=== PATIENT | female | born 1990 | race Hispanic/Latino ===

== ENCOUNTER 2017-06-20 13:06 | Emergency (ER) | payer SELFPAY ==
[~2017-06-20 13:06] MED LIST: CEFU500T67 PO; LACT1CAP65 PO
[2017-06-20 15:37] LABS: APPEARANCE,URINE CLOUDY (CLEAR); BILIRUBIN,URINE NEGATIVE (NEGATIVE); COLOR,URINE YELLOW (YELLOW); GLUCOSE, URINE (UA) NEGATIVE (NEGATIVE); KETONES,URINE 15 mg/dL (NEGATIVE); LEUKOCYTE ESTERASE ,URINE SMALL (NEGATIVE); NITRATE,URINE POSITIVE (NEGATIVE); OCCULT BLOOD,URINE SMALL (NEGATIVE); PROTEIN,URINE NEGATIVE (NEGATIVE); UROBILINOGEN,URINE 0.2 mg/dL (0.2-1.0)
[2017-06-20 16:41] LABS: BACTERIA,URINE Moderate /HPF (None Seen)
[2017-06-20 16:42] LABS: MUCUS,URINE Few LPF (None Seen); SQUAMOUS EPITHELIAL CELL,UR Few /LPF (0-2)
== END 2017-06-20 16:21 | disposition home or self-care (01) ==
LOC: EDH 13:06
DX: J09.X2 Influenza due to identified novel influenza A virus with other respiratory manifestations (principal); R50.81 Fever presenting with conditions classified elsewhere; N39.0 Urinary tract infection, site not specified
CPT/HCPCS: 81001; 87804

== ENCOUNTER 2017-07-07 10:28 | Emergency (ER) | payer SELFPAY ==
[2017-07-07 11:52] LABS: APPEARANCE,URINE Cloudy (CLEAR); BILIRUBIN,URINE Negative (NEGATIVE); COLOR,URINE Yellow (YELLOW); GLUCOSE, URINE (UA) Negative (NEGATIVE); HCG,QUAL RESULT NEGATIVE (NEGATIVE); KETONES,URINE Trace mg/dL (NEGATIVE); LEUKOCYTE ESTERASE ,URINE Large (NEGATIVE); NITRATE,URINE Positive (NEGATIVE); OCCULT BLOOD,URINE Moderate (NEGATIVE); PROTEIN,URINE Negative (NEGATIVE)
[2017-07-07 11:54] LABS: BACTERIA,URINE Many /HPF (None Seen); RBC,URINE 0-1 /HPF (0-1); SQUAMOUS EPITHELIAL CELL,UR Few /LPF (0-2)
[2017-07-07] MEDS ORDERED: CEFTRIAXONE SODIUM 1 GM ONE (12:40)
[2017-07-07] MEDS ORDERED: LIDOCAINE HCL-MPF 1% 2ML VIAL ONE (12:41)
[2017-07-07] MEDS ORDERED: HYDROCODONE/ACETAMINOPHEN 5/325 MG TAB ONE (12:41)
== END 2017-07-07 13:04 | disposition home or self-care (01) ==
LOC: EDH 10:28
DX: N39.0 Urinary tract infection, site not specified (principal); R19.00 Intra-abdominal and pelvic swelling, mass and lump, unspecified site; Z98.51 Tubal ligation status
CPT/HCPCS: 76856; 81001; 81025; 96372; 99285; J0696; J3490

== ENCOUNTER 2018-06-15 09:47 | Emergency (ER) | payer OTHER ==
[2018-06-15] MEDS ORDERED: ONDANSETRON ODT 4 MG TAB ONE (10:13)
[2018-06-15] MEDS ORDERED: DICYCLOMINE HCL 20 MG TAB ONE (10:13)
[2018-06-15 10:19] LABS: APPEARANCE,URINE Clear (CLEAR); BILIRUBIN,URINE Negative (NEGATIVE); COLOR,URINE Yellow (YELLOW); GLUCOSE, URINE (UA) Negative (NEGATIVE); KETONES,URINE Negative (NEGATIVE); LEUKOCYTE ESTERASE ,URINE Moderate (NEGATIVE); NITRATE,URINE Negative (NEGATIVE); OCCULT BLOOD,URINE Negative (NEGATIVE); PH,URINE 5.5 (5.0-8.0); PROTEIN,URINE Negative (NEGATIVE); UROBILINOGEN,URINE 0.2 mg/dL (0.2-1.0)
[2018-06-15 10:26] LABS: HCG,QUAL RESULT NEGATIVE (NEGATIVE)
[2018-06-15 10:43] LABS: RBC,URINE None Seen /HPF (0-1); SQUAMOUS EPITHELIAL CELL,UR Few /HPF (0-2)
[2018-06-15 10:44] LABS: BACTERIA,URINE Moderate /HPF (None Seen)
== END 2018-06-15 11:39 | disposition home or self-care (01) ==
LOC: EDH 09:47
DX: N39.0 Urinary tract infection, site not specified (principal); R19.7 Diarrhea, unspecified; R11.2 Nausea with vomiting, unspecified
CPT/HCPCS: 81001; 81025

== ENCOUNTER 2018-07-01 08:53 | Emergency (ER) | payer OTHER ==
[2018-07-01 09:43] LABS: APPEARANCE,URINE Cloudy (CLEAR); BILIRUBIN,URINE Negative (NEGATIVE); COLOR,URINE Yellow (YELLOW); GLUCOSE, URINE (UA) Negative (NEGATIVE); KETONES,URINE Negative (NEGATIVE); LEUKOCYTE ESTERASE ,URINE Large (NEGATIVE); NITRATE,URINE Positive (NEGATIVE); OCCULT BLOOD,URINE Trace (NEGATIVE); PROTEIN,URINE Negative (NEGATIVE)
[2018-07-01] MEDS ORDERED: ONDANSETRON HCL 4 MG/2 ML VIAL ONE (09:43)
[2018-07-01 09:44] LABS: HCG,QUAL RESULT NEGATIVE (NEGATIVE)
[2018-07-01] MEDS ORDERED: MORPHINE SULFATE 4 MG/1ML SYG ONE (09:44)
[2018-07-01 09:51] LABS: BASOPHILS % (AUTO) 0.6 % (0.0-5.0); EOSINOPHILS % (AUTO) 4.5 % (0.0-8.0); LYMPHOCYTES % (AUTO) 26.4 % (21.0-51.0); MEAN CORPUSCULAR HEMOGLOBIN 29.7 pg (27.0-33.0); MEAN CORPUSCULAR HGB CONC 33.2 g/dL (32.0-36.0); MEAN CORPUSCULAR VOLUME 89.4 fL (79-99); MONOCYTES % (AUTO) 11.3 % (3.0-13.0); NEUTROPHILS % (AUTO) 57.2 % (40.0-77.0); NUCLEATED RED BLOOD CELLS 0.1 % (0.0-0.19); PLATELET COUNT (AUTO) 218 K/uL (130-400); RED BLOOD CELL COUNT(AUTO) 4.59 MIL/uL (4.00-5.50); RED CELL DISTRIBUTION WIDTH 13.1 % (11.0-15.5); WHITE BLOOD COUNT (AUTO) 6.9 K/uL (4.8-10.8)
[2018-07-01 09:53] LABS: BACTERIA,URINE Moderate /HPF (None Seen)
[2018-07-01 09:54] LABS: RBC,URINE 0-1 /HPF (0-1)
[2018-07-01 09:57] LABS: CREATININE 0.6 mg/dL (0.5-1.5)
[2018-07-01 10:03] LABS: ALBUMIN 3.6 g/dL (3.5-5.0); BILIRUBIN,TOTAL 0.3 mg/dL (0.2-1.0); TOTAL PROTEIN, SERUM 7.2 g/dL (6.0-8.3)
[2018-07-01] MEDS ORDERED: SODIUM CHLORIDE 0.9% 1000ML 1,000 ML IV ONE (10:09)
[2018-07-01] MEDS ORDERED: CEFTRIAXONE SODIUM 1 GM ONE (10:10)
== END 2018-07-01 11:42 | disposition home or self-care (01) ==
LOC: EDH 08:53
DX: N30.90 Cystitis, unspecified without hematuria (principal); R35.0 Frequency of micturition; R10.30 Lower abdominal pain, unspecified; M54.5 Low back pain; Z98.51 Tubal ligation status; Z87.891 Personal history of nicotine dependence
CPT/HCPCS: 36415; 74176; 80053; 81001; 81025; 85025; 87077; 87088; 87186; 96374; 96375; 99284; J0696; J2270; J2405; J7030

== ENCOUNTER 2018-07-20 18:31 | Emergency (ER) | payer OTHER ==
[2018-07-20 19:55] LABS: APPEARANCE,URINE CLOUDY (CLEAR); BILIRUBIN,URINE NEGATIVE (NEGATIVE); COLOR,URINE YELLOW (YELLOW); GLUCOSE, URINE (UA) NEGATIVE (NEGATIVE); KETONES,URINE 5 mg/dL (NEGATIVE); LEUKOCYTE ESTERASE ,URINE MODERATE (NEGATIVE); NITRATE,URINE POSITIVE (NEGATIVE); OCCULT BLOOD,URINE MODERATE (NEGATIVE); PH,URINE 7.5 (5.0-8.0); PROTEIN,URINE TRACE (NEGATIVE)
[2018-07-20 20:02] LABS: HCG,QUAL RESULT NEGATIVE (NEGATIVE)
[2018-07-20 20:04] LABS: BACTERIA,URINE Moderate /HPF (None Seen); SQUAMOUS EPITHELIAL CELL,UR Few /HPF (0-2)
[2018-07-20] MEDS ORDERED: KETOROLAC TROMETHAMINE 60 MG/2 ML VIAL ONE (20:53)
[2018-07-20] MEDS ORDERED: PHENAZOPYRIDINE HCL 200 MG TABLET ONE (20:54)
[2018-07-20] MEDS ORDERED: CEFTRIAXONE SODIUM 1 GM ONE (20:54)
== END 2018-07-20 21:12 | disposition home or self-care (01) ==
LOC: EDH 18:31
DX: N39.0 Urinary tract infection, site not specified (principal); Z98.51 Tubal ligation status
CPT/HCPCS: 81001; 81025; 96372 ×2; 99283; J0696; J1885

== ENCOUNTER 2018-09-07 14:03 | Emergency (ER) | payer OTHER | END 2018-09-07 14:46 | disposition home or self-care (01) | LOC: EDH 14:03 | DX: H66.012 Acute suppurative otitis media with spontaneous rupture of ear drum, left ear (principal); Z98.51 Tubal ligation status ==

== ENCOUNTER 2018-10-12 08:44 | Emergency (ER) | payer OTHER ==
[2018-10-12] MEDS ORDERED: IBUPROFEN 400 MG TABLET ONE (09:07)
[2018-10-12] MEDS ORDERED: IBUPROFEN 200 MG TAB ONE (09:07)
== END 2018-10-12 11:15 | disposition home or self-care (01) ==
LOC: EDH 08:44
DX: R51 Headache (principal); R10.2 Pelvic and perineal pain; Z98.51 Tubal ligation status
CPT/HCPCS: 76856

== ENCOUNTER 2018-12-06 07:05 | Emergency (ER) | payer OTHER ==
[2018-12-06] MEDS ORDERED: HYDROCODONE/ACETAMINOPHEN 5/325 MG TAB ONE (07:40)
== END 2018-12-06 08:03 | disposition home or self-care (01) ==
LOC: EDH 07:05
DX: H60.92 Unspecified otitis externa, left ear (principal); H66.92 Otitis media, unspecified, left ear; Z98.51 Tubal ligation status

== ENCOUNTER 2019-05-04 13:35 | Emergency (ER) | payer OTHER ==
[2019-05-04 15:54] LABS: BASOPHILS % (AUTO) 0.4 % (0.0-5.0); EOSINOPHILS % (AUTO) 0.9 % (0.0-8.0); HEMATOCRIT 39.3 % (36-48); LYMPHOCYTES % (AUTO) 17.7 % (21.0-51.0); MEAN CORPUSCULAR HEMOGLOBIN 30.4 pg (27.0-33.0); MEAN CORPUSCULAR HGB CONC 34.3 g/dL (32.0-36.0); MEAN CORPUSCULAR VOLUME 88.8 fL (79-99); MONOCYTES % (AUTO) 10.9 % (3.0-13.0); NEUTROPHILS % (AUTO) 70.1 % (40.0-77.0); PLATELET COUNT (AUTO) 244 K/uL (130-400); RED BLOOD CELL COUNT(AUTO) 4.43 MIL/uL (4.00-5.50); RED CELL DISTRIBUTION WIDTH 13.1 % (11.0-15.5)
[2019-05-04 15:57] LABS: APPEARANCE,URINE Clear (CLEAR); BILIRUBIN,URINE Negative (NEGATIVE); COLOR,URINE Yellow (YELLOW); GLUCOSE, URINE (UA) Negative (NEGATIVE); KETONES,URINE Negative (NEGATIVE); LEUKOCYTE ESTERASE ,URINE Trace (NEGATIVE); NITRATE,URINE Negative (NEGATIVE); OCCULT BLOOD,URINE Negative (NEGATIVE); PH,URINE 6.5 (5.0-8.0); PROTEIN,URINE Negative (NEGATIVE); UROBILINOGEN,URINE 0.2 mg/dL (0.2-1.0)
[2019-05-04 16:05] LABS: AMPHET/METH SCREEN,URINE NEGATIVE (NEGATIVE); BARBITURATE SCREEN, URINE NEGATIVE (NEGATIVE); BENZODIAZEPINES SCREEN,URINE NEGATIVE (NEGATIVE); CANNABINOID SCREEN,URINE NEGATIVE (NEGATIVE); COCAINE SCREEN,URINE NEGATIVE (NEGATIVE); OPIATE SCREEN,URINE NEGATIVE (NEGATIVE); PHENCYCLIDINE SCREEN,URINE NEGATIVE (NEGATIVE)
[2019-05-04 16:06] LABS: INR 1.04 (0.85-1.15); PARTIAL THROMBOPLASTIN TIME 25.4 SEC (26.3-35.5); PROTHROMBIN TIME 10.9 SEC (9.6-11.6)
[2019-05-04 16:10] LABS: CREATININE 0.6 mg/dL (0.5-1.5); POTASSIUM 3.6 mmol/L (3.5-5.1)
[2019-05-04 16:14] LABS: BACTERIA,URINE Rare /HPF (None Seen); RBC,URINE 0-1 /HPF (0-1)
[2019-05-04 16:15] LABS: BILIRUBIN,TOTAL 0.5 mg/dL (0.2-1.0); TOTAL PROTEIN, SERUM 7.8 g/dL (6.0-8.3)
[2019-05-04 16:15] LABS: SQUAMOUS EPITHELIAL CELL,UR 0-2 /HPF (0-2)
== END 2019-05-04 16:48 | disposition home or self-care (01) ==
LOC: EDH 13:35
DX: F45.8 Other somatoform disorders (principal); Z98.51 Tubal ligation status
CPT/HCPCS: 36415; 71046; 80053; 80305; 81001; 82550; 84484; 85025; 85610; 85730; 93005

== ENCOUNTER 2019-07-08 08:59 | Emergency (ER) | payer SELFPAY ==
[2019-07-08] MEDS ORDERED: DEXAMETHASONE SOD PHOSPHATE 10MG/ML 1ML VIAL ONE (09:37)
[2019-07-08] MEDS ORDERED: LIDOCAINE HCL-MPF 1% 2ML VIAL ONE (09:37)
[2019-07-08] MEDS ORDERED: CEFTRIAXONE SODIUM 1 GM ONE (09:38)
[2019-07-08] MEDS ORDERED: FAMOTIDINE 20MG TAB 20 MG TAB ONE (10:32)
[2019-07-08] MEDS ORDERED: METHYLPREDNISOLONE SOD SUCC 125MG/2ML VIAL ONE (10:32)
[2019-07-08] MEDS ORDERED: DIPHENHYDRAMINE HCL 25 MG CAPSULE ONE (10:33)
== END 2019-07-08 10:57 | disposition home or self-care (01) ==
LOC: EDH 08:59
DX: J10.1 Influenza due to other identified influenza virus with other respiratory manifestations (principal); Z98.51 Tubal ligation status
CPT/HCPCS: 87804 ×2; 96372 ×2; 99284; J0696; J1100; J3490; J2930; Q0163

== ENCOUNTER 2019-12-02 17:09 | Emergency (ER) | payer OTHER, SELFPAY ==
[2019-12-02 18:42] LABS: APPEARANCE,URINE Clear (CLEAR); BILIRUBIN,URINE Negative (NEGATIVE); COLOR,URINE Yellow (YELLOW); GLUCOSE, URINE (UA) Negative (NEGATIVE); KETONES,URINE 15 mg/dL (NEGATIVE); LEUKOCYTE ESTERASE ,URINE Moderate (NEGATIVE); NITRATE,URINE Negative (NEGATIVE); OCCULT BLOOD,URINE Moderate (NEGATIVE); PROTEIN,URINE Negative (NEGATIVE)
[2019-12-02 18:50] LABS: AMPHET/METH SCREEN,URINE NEGATIVE (NEGATIVE); BARBITURATE SCREEN, URINE NEGATIVE (NEGATIVE); BENZODIAZEPINES SCREEN,URINE POSITIVE (NEGATIVE); CANNABINOID SCREEN,URINE POSITIVE (NEGATIVE); COCAINE SCREEN,URINE NEGATIVE (NEGATIVE); OPIATE SCREEN,URINE POSITIVE (NEGATIVE); PHENCYCLIDINE SCREEN,URINE NEGATIVE (NEGATIVE)
[2019-12-02 18:57] LABS: BASOPHILS % (AUTO) 0.5 % (0.0-5.0); EOSINOPHILS % (AUTO) 2.6 % (0.0-8.0); HEMATOCRIT 41.7 % (36-48); LYMPHOCYTES % (AUTO) 24.9 % (21.0-51.0); MEAN CORPUSCULAR HEMOGLOBIN 29.7 pg (27.0-33.0); MEAN CORPUSCULAR HGB CONC 34.1 g/dL (32.0-36.0); MEAN CORPUSCULAR VOLUME 87.2 fL (79-99); MONOCYTES % (AUTO) 16.6 % (3.0-13.0); NEUTROPHILS % (AUTO) 55.2 % (40.0-77.0); PLATELET COUNT (AUTO) 247 K/uL (130-400); RED BLOOD CELL COUNT(AUTO) 4.78 MIL/uL (4.00-5.50); RED CELL DISTRIBUTION WIDTH 12.2 % (11.0-15.5)
[2019-12-02 19:10] LABS: CREATININE 0.6 mg/dL (0.5-1.5); POTASSIUM 3.5 mmol/L (3.5-5.1)
[2019-12-02 19:14] LABS: ALBUMIN 3.9 g/dL (3.5-5.0); BILIRUBIN,TOTAL 0.3 mg/dL (0.2-1.0); TOTAL PROTEIN, SERUM 8.3 g/dL (6.0-8.3)
[2019-12-02 19:58] LABS: RAPID GROUP A STREP NEGATIVE (NEGATIVE)
[2019-12-02 20:11] LABS: BACTERIA,URINE Few /HPF (None Seen); SQUAMOUS EPITHELIAL CELL,UR Moderate /HPF (0-2)
== END 2019-12-02 20:37 | disposition home or self-care (01) ==
LOC: EDH 17:09
DX: N39.0 Urinary tract infection, site not specified (principal); B34.9 Viral infection, unspecified; Z20.828 Contact with and (suspected) exposure to other viral communicable diseases; Z98.51 Tubal ligation status
CPT/HCPCS: 36415; 80053; 80305; 81001; 82550; 84484; 85025; 87088; 87804 ×2; 87880; 93005; 99284; U0003

== ENCOUNTER 2024-01-23 08:05 | Emergency (ER) | payer BC, OTHER ==
[~2024-01-23] VITALS: Ht 157.5 cm; Wt 99.8 kg
[2024-01-23 09:15] LABS: RAPID GROUP A STREP negative (NEGATIVE)
[2024-01-23 09:25] LABS: INFLUENZA TYPE A Negative For Type A (NEGATIVE); INFLUENZA TYPE B Negative For Type B (NEGATIVE)
[2024-01-23 09:30] LABS: SARS-CoV-2, RNA, NAAT POSITIVE SARS CoV-2 (NEGATIVE)
[2024-01-23] MEDS: ibuPROFEN 800 MG TAB PO ONE (09:53)
[2024-01-23 09:56] VITALS: BP 142/77; PULSE 92; RESP 20; TEMP 98.8; O2SAT 99
[2024-01-23] MEDS ORDERED: BENZ-39 PO (09:59)
[2024-01-23] MEDS ORDERED: IBUP-2070 PO (09:59)
[2024-01-23] MEDS ORDERED: ONDA-243 PO (09:59)
== END 2024-01-23 10:11 | disposition home or self-care (01) ==
LOC: EDH 08:05
DX: U07.1 COVID-19 (principal); J06.9 Acute upper respiratory infection, unspecified; Z68.41 Body mass index [BMI] 40.0-44.9, adult
CPT/HCPCS: 87635; 87804; 87880